=== PATIENT | female | born 1985 | race Caucasian/White ===

== ENCOUNTER 2020-04-11 21:45 | Emergency (ER) | payer BC ==
[2020-04-11 21:53] VITALS: BP 128/79; PULSE 71; TEMP 98.5; BMI 23.3
[2020-04-11 23:20] LABS: URINE APPEARANCE CLEAR; URINE BILIRUBIN NEGATIVE (NEGATIVE); URINE COLOR YELLOW; URINE GLUCOSE (UA) NEGATIVE (NEGATIVE); URINE KETONE NEGATIVE (NEGATIVE); URINE LEUK ESTERASE NEGATIVE (NEGATIVE); URINE NITRITE NEGATIVE (NEGATIVE); URINE PROTEIN NEGATIVE (NEGATIVE); URINE UROBILINOGEN 0.2 mg/dL (0.2-1.0)
--- NOTE | 2020-04-11 23:58 | PDOC ---
Documentation entered by Rosetta Prather SCRIBE, acting as scribe for Tonia Ivory DO. Tonia Ivory DO: This documentation has been prepared by the Yamilka travis Brenda, SCRIBE, under my direction and personally reviewed by me in its entirety. I confirm that the documentation accurately reflects all work, treatment, procedures, and medical decision making performed by me. History of Present Illness - General Chief Complaint: Vaginal Sxs Stated Complaint: VAGINAL DISCHARGE Time Seen by Provider: 04/11/20 21:47 - History of Present Illness Initial Comments: 04/11/20 22:43 The patient is a 34 year old female with a significant PMH of Depression, heavy menstrual cycles and UTIs who presents to the emergency department for evaluation of 4-5 days of white vaginal discharge. Patient notes that the discharge began once her menstrual period ended. Patient endorses frequency and foul smelling discharge. She also states being sexually active with 1 partner for a while. Endorses having a busy work schedule so has a hard time urinating frequently. The patient denies yellow/dark discharge, denies itching. Denies chest pain, shortness of breath, headache and dizziness. Denies fever, chills, cough, nausea, vomiting, diarrhea and constipation. Denies dysuria, urgency and hematuria. Allergies: NKDA Past History - Medical History Allergies/Adverse Reactions: Allergies Allergy/AdvReac Type Severity Reaction Status Date / Time No Known Allergies Allergy Verified 04/11/20 21:53 Home Medications: Ambulatory Orders metroNIDAZOLE 0.75% VAG. GEL [Metrogel 0.75% *Vaginal Gel* -] 1 applic VG HS 7 Days #1 tube 04/11/20 COPD: No - Reproductive History Is Patient Now?: No - Psycho-Social/Smoking History Smoking History: Never smoked - Substance Abuse Hx (Audit-C & DAST Scrn) How often the patient has a drink containing alcohol: Never Score: In Men: 4 or > Positive; In Women: 3 or > Positive: 0 Screen Result (Pos requires Nsg. Audit-10AR): Negative In the last yr the pt used illegal drug/Rx for NonMed reason: No Score: Yes response is considered Positive: 0 Screen Result (Positive result requires Nsg. DAST-10): Negative Review of Systems - Review of Systems Able to Perform ROS?: Yes Comments:: 04/11/20 22:51 GENERAL/CONSTITUTIONAL: No fever or chills. No weakness. HEAD, EYES, EARS, NOSE AND THROAT: No change in vision. No ear pain or discharge. No sore throat. CARDIOVASCULAR: No chest pain or shortness of breath. RESPIRATORY: No cough, wheezing, or hemoptysis. GASTROINTESTINAL: No nausea, vomiting, diarrhea or constipation. GENITOURINARY: (+) Vaginal discharge. (+) Frequency No dysuria. MUSCULOSKELETAL: No joint or muscle swelling or pain. No neck or back pain. SKIN: No rash NEUROLOGIC: No headache, vertigo, loss of consciousness, or change in strength/sensation. ENDOCRINE: No increased thirst. No abnormal weight change. HEMATOLOGIC/LYMPHATIC: No anemia, easy bleeding, or history of blood clots. ALLERGIC/IMMUNOLOGIC: No hives or skin allergy. *Physical Exam - Vital Signs Last Vital Signs Temp Pulse Resp BP Pulse Ox 98.5 F 71 19 128/79 100 04/11/20 21:50 04/11/20 21:50 04/11/20 21:50 04/11/20 21:50 04/11/20 21:50 - Physical Exam 04/11/20 22:23 GENERAL: Awake, alert, and fully oriented, in no acute distress HEAD: No signs of trauma EYES: PERRLA, EOMI, sclera anicteric, conjunctiva clear ENT: Auricles normal inspection, hearing grossly normal, nares patent, orop harynx clear without exudates. Moist mucosa NECK: Normal ROM, supple, no lymphadenopathy, JVD, or masses LUNGS: Breath sounds equal, clear to auscultation bilaterally. No wheezes, and no crackles HEART: Regular rate and rhythm, normal S1 and S2, no murmurs, rubs or gallops ABDOMEN: (+) Superpubic tenderness to palpation. Soft, normoactive bowel sounds. No guarding, no rebound. No masses EXTREMITIES: Normal range of motion, no edema. No clubbing or cyanosis. No cords, erythema, or tenderness NEUROLOGICAL: Cranial nerves II through XII grossly intact. Normal speech, normal gait SKIN: Warm, Dry, normal turgor, no rashes lesions noted. Medical Decision Making - Medical Decision Making 04/11/20 23:58 a/p: 34yo female with hx of heavy menstrual cycles presents for eval of vaginal bleeding -also c/o urinary freq -pt denies new sexual contacts -no hx of sti/std -hx of yeast infections and freq uti -pt denies f/c, no n/v/d. 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 GEL [Metrogel 0.75% *Vaginal Gel* -] 1 applic VG HS 7 Days #1 tube - Follow up/Referral Referrals: Alexx Carr MD [Staff Physician] - Curtis Gregorio MD [Staff Physician] - Sabina Springer [Staff Physician] - Raman Springer MD [Staff Physician] - - Patient Discharge Instructions Patient Printed Discharge Instructions: DI for Vaginal Discharge Additional Instructions: Please use the metrogel intra-vaginally at night for [address] Carr to schedule a follow up. Your gonorrhea and chlamydia cultures are pending. If you are concerned for STIs - please have your partner get tested as well and practice safe intercourse by using condoms. Please return to the ER with any further concerns or complaints. It was a pleasure to meet you and to take care of you tonight. If you need anything, please don't hesitate to ask - Post Discharge Activity
== END 2020-04-12 00:07 | disposition home or self-care (01) ==
LOC: JER 21:45 → JERFT 21:45
DX: N89.8 Other specified noninflammatory disorders of vagina (principal)
CPT/HCPCS: 36415; 81003; 87070; 87086; 87205; 87491; 87591; 99282-25

== ENCOUNTER 2021-02-22 09:29 | Emergency (ER) | payer BC ==
[2021-02-23 16:08] LABS: SARS-CoV-2 NAA Not Detected (Not Detected)
== END 2021-02-22 11:40 | disposition home or self-care (01) ==
LOC: JVIRT 09:29
DX: Z11.52 Encounter for screening for COVID-19 (principal)
CPT/HCPCS: 87804; C9803; G2251-GT; U0003; U0005